=== PATIENT | male | born 2000 | race African-American/Black ===

== ENCOUNTER → 2024-11-15 | Emergency (ER) | payer MEDICAID ==
[~2024-11-15] VITALS: Ht 175.3 cm; Wt 77.0 kg
[2024-11-15 18:12] VITALS: TEMP 97.5
[2024-11-15 20:28] LABS: BASOPHILS % (AUTO) 0.6 % (0.0-2.0); EOSINOPHILS % (AUTO) 12.2 % (1.0-6.0); HEMATOCRIT 44.1 % (41-53); HEMOGLOBIN 14.8 g/dL (13.5-17.5); LYMPHOCYTES # (AUTO) 1.6 K/uL (1.0-4.8); LYMPHOCYTES % (AUTO) 13.4 % (22.0-44.0); MEAN CORPUSCULAR HGB CONC 33.5 G/dL (31.0-37.0); MEAN CORPUSCULAR VOLUME 93 fL (80-100); MONOCYTES # (AUTO) 0.7 K/uL (0.1-1.0); MONOCYTES % (AUTO) 6.3 % (2.0-9.0); NEUTROPHILS % (AUTO) 67.5 % (40.0-70.0); PLATELET COUNT (AUTO) 352 K/uL (150-450); RED BLOOD CELL COUNT(AUTO) 4.76 MIL/uL (4.50-5.90); WHITE BLOOD COUNT (AUTO) 11.9 K/uL (4.5-11.0)
[2024-11-15 20:37] LABS: ANION GAP 10 mmol/L (8-16); CALCIUM, TOTAL 8.6 mg/dL (8.8-10.5); CARBON DIOXIDE 26 mmol/L (22-29); CHLORIDE 105 mmol/L (98-107); GLOMERULAR FILTR. RATE CALC > 60 mL/min (>60); GLUCOSE,RANDOM 92 mg/dL (70-110); POTASSIUM 3.6 mmol/L (3.5-5.1); SODIUM SERUM 141 mmol/L (136-145); UREA NITROGEN, BLOOD 9 mg/dL (7-18)
[2024-11-15 20:47] LABS: TROPONIN I-HIGH SENSITIVITY Less Than 4 ng/L (<76)
[2024-11-15 20:53] LABS: B-TYPE NATRIURETIC PEPTIDE 10 pg/mL (0-100)
[2024-11-15 21:01] LABS: COVID AG,FIA SOURCE NASAL SWAB
[2024-11-15 21:17] VITALS: BP 129/72; PULSE 61; RESP 16; O2SAT 98
[2024-11-15 21:43] LABS: SARS-COV2 (COVID) ANTIGEN,FIA Negative (Negative)
[2024-11-15 21:45] LABS: INFLUENZA TYPE A NEGATIVE FOR TYPE A (NEGATIVE); INFLUENZA TYPE B NEGATIVE FOR TYPE B (NEGATIVE)
[2024-11-15 21:54] LABS: RAPID GROUP A STREP NEGATIVE (NEGATIVE)
== END | disposition home or self-care (01) ==
LOC: EMS 18:01
DX: J02.9 Acute pharyngitis, unspecified (principal); J06.9 Acute upper respiratory infection, unspecified; R06.00 Dyspnea, unspecified; R06.02 Shortness of breath; Z91.030 Bee allergy status; Z20.822 Contact with and (suspected) exposure to COVID-19
CPT/HCPCS: 80048; 83880; 84484; 85025; 87430; 87804; 93005; 99284